=== PATIENT | female | born 1970 | race Two or more races ===

== ENCOUNTER 2016-06-16 08:59 | Emergency (ER) | payer MEDICAID ==
[~2016-06-16] VITALS: Ht 165.1 cm; Wt 61.0 kg
[2016-06-16 11:55] VITALS: BP 124/78
== END 2016-06-16 13:20 | disposition home or self-care (01) ==
LOC: ER 09:55
DX: M54.2 Cervicalgia (principal); V43.62XA Car passenger injured in collision with other type car in traffic accident, initial encounter; Y92.488 Other paved roadways as the place of occurrence of the external cause
CPT/HCPCS: 72040; 72125; 99284